=== PATIENT | male | born 1990 | race Caucasian/White ===

== ENCOUNTER 2025-02-06 10:31 | Day surgery (SDC) | payer MEDICARE, MEDICAID, SELFPAY ==
--- NOTE | 2025-02-01 13:27 | W.PM.DSUDISC ---
Discharge Plan Disposition Patient Disposition: Home Discharge Details Attending Provider: Leandro Ortiz Primary Care Provider: Maldonado Tuttle Home Meds and New Rx's Prescriptions: No Action clonazepam [Klonopin] 0.5 mg tablet 1.5 mg PO BID diazepam 20 mg kit 5 mg [place] Q12H PRN lamotrigine 25 mg tablet 25 mg PO BID Rx Instructions: one tab in morning and two tabs in evening (DME) blood-glucose meter Kit See Rx Instructions .Route Rx Instructions: As directed mometasone [Nasonex 24hr Allergy] 50 mcg/actuation spray,non-aerosol 2 spray intranasal DAILY Rx Instructions: administer into each nostril famotidine 40 mg/5 mL (8 mg/mL) suspension for reconstitution 20 mg PO BID lorazepam 1 mg tablet 1 mg PO DAILY PRN albuterol sulfate [Ventolin HFA] 90 mcg/actuation HFA aerosol inhaler 1 puff inhalation Q4H PRN ibuprofen 100 mg tablet,chewable 600 mg PO BID (DME) incontinence pad, liner, disp Pad See Rx Instructions .Route Rx Instructions: As directed diazepam 20 mg/2 spray (10mg/0.1mL x2) spray,non-aerosol 20 mg intranasal ONCE PRN Rx Instructions: administer 1 spray into each nostril; as a single dose promethazine 25 mg suppository 25 mg [place] Q6H PRN ondansetron HCl 8 mg tablet 8 mg PO Q8H PRN zonisamide [Zonegran] 100 mg capsule 100 mg PO .qod risperidone 1 mg/mL solution 1 mg PO BID Rx Instructions: take 0.8 ML by mouth BID (DME) underpads Pad See Rx Instructions .Route Rx Instructions: As directed sulfamethoxazole-trimethoprim 200-40 mg/5 mL suspension 10 ml PO BID Rx Instructions: takes fpc pregabalin 75 mg capsule 75 mg PO DAILY fluvoxamine 25 mg tablet 25 mg PO BID lamotrigine 50 mg tablet,disintegrating 50 mg PO HS valproic acid (as sodium salt) 250 mg/5 mL (5 mL) solution 125 mg PO BID Discharge Instructions Stand Alone Forms: Portal Information
[2025-02-06] VITALS (11 sets, daily range): BP systolic 131–148; BP diastolic 65–87; PULSE 72–85; RESP 13–20; TEMP 36.2–36.8; O2SAT 96–100; BMI 38.2
--- NOTE | 2025-02-06 09:04 | W.ANESPRE ---
General Info Date of Service Date Performed: 02/06/25 Height: 5 ft 3 in Weight: 97.976 kg Body Mass Index (BMI): 38.2 Surgical Procedure: Operation Date: 02/06/25 12:10 Proposed Procedure Side Surgeon p Sacroiliac Joint Injection Leandro Ortiz MD Meds Allergies and Home Medications Allergies Allergy/AdvReac Type Severity Reaction Status Date / Time citalopram Allergy Severe Unknown Verified 02/06/25 10:52 levetiracetam Allergy Intermediate Other (See Verified 02/06/25 10:52 Comment) amoxicillin Allergy Mild Topical Verified 02/06/25 10:52 Irritation fluticasone (From Flonase) AdvReac Intermediate Other (See Verified 02/06/25 10:52 Comment) methylphenidate AdvReac Intermediate Other (See Verified 02/06/25 10:52 Comment) tiagabine AdvReac Intermediate Other (See Verified 02/06/25 10:52 Comment) pyridoxine AdvReac Mild Other (See Verified 02/06/25 10:52 Comment) Home Medication ?Medication ?Instructions ?Recorded albuterol sulfate 90 mcg/actuation 1 puff inhalation Q4H PRN 12/16/24 aerosol inhaler (Ventolin HFA) blood-glucose meter 12/16/24 clonazepam 0.5 mg tablet (Klonopin) 1.5 mg PO BID 12/16/24 diazepam 20 mg rectal kit 5 mg [place] Q12H PRN 12/16/24 diazepam 20 mg/2 spray (10 mg/0.1 20 mg intranasal ONCE PRN 12/16/24 mL x 2) nasal spray famotidine 40 mg/5 mL (8 mg/mL) 20 mg PO BID 12/16/24 oral suspension ibuprofen 100 mg chewable tablet 600 mg PO TID 12/16/24 incontinence pad, liner, disp 12/16/24 lamotrigine 25 mg tablet 25 mg PO BID 12/16/24 lorazepam 1 mg tablet 1 mg PO DAILY PRN 12/16/24 mometasone 50 mcg/actuation nasal 2 spray intranasal DAILY 12/16/24 spray (Nasonex 24hr Allergy) ondansetron HCl 8 mg tablet 8 mg PO Q8H PRN 12/16/24 pregabalin 75 mg capsule 75 mg PO DAILY 12/16/24 promethazine 25 mg rectal 25 mg [place] Q6H PRN 12/16/24 suppository risperidone 1 mg/mL oral solution 1 mg PO BID 12/16/24 sulfamethoxazole 200 10 ml PO BID 12/16/24 mg-trimethoprim 40 mg/5 mL oral suspension underpads 12/16/24 zonisamide 100 mg capsule 100 mg PO .qod 12/16/24 (Zonegran) fluvoxamine 25 mg tablet 25 mg PO BID 12/20/24 lamotrigine 50 mg disintegrating 50 mg PO HS 12/20/24 tablet valproic acid (as sodium salt) 250 125 mg PO BID 12/20/24 mg/5 mL (5 mL) oral solution PFSH Active Problems Active Problems: Problem Status Onset Code SI (sacroiliac) joint dysfunction Acute M53.3 Lumbar spondylosis Acute M47.816 Lumbar spine scoliosis Acute M41.9 Medical History Medical History (Updated 02/03/25 @ 08:55 by Zoran Erazo) Spasticity Microcephaly Epileptic seizures Per dad out-going them only had 2 seizures in in the past 7 years. 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 Surgical History Surgical History History of ankle surgery [facility] 2024 Tobacco Smoking/Tobacco Use Status: Never Passive smoking exposure: No Alcohol Alcohol Intake: never Substance Use Substance use: Never Substance use type: does not use Anesthesia Assessment and Plan Anesthesia History Personal History: No History of Anesthesia Complications Family History: No Family History of Anesthesia Complications Exercise Tolerance Exercise Tolerance: Metabolic Equivalents>4 Cardiac & Pulmonary Exam Cardiac Exam: Normal S1/S2 Heart Sounds Pulmonary Exam: Clear Bilateral Breath Sounds Implantable Cardiac Device Does patient have a Pacemaker or an ICD?: No Airway Exam Known Difficult Airway: No Mallampati Class: 4 Mouth Opening: Narrow (< 3cm) Thyromental Distance: Less than 3 cm Neck Range of Motion: Full ROM Neck Circumference: Normal Teeth Condition: Normal Dentition and Unable to Assess ASA Classification ASA Score: ASA 3 Emergency Case?: No NPO Status NPO Status: NPO Clears >2 hours, Solids >8 hours Anesthesia Plan Resuscitation Status: Full Code Anesthesia Technique: General Anesthesia Airway Planned: Endotracheal Tube Monitors Used: Standard Monitors Preoperative Comments:: 34 yo for sacroiliac injection. Sig PMHx: Mowat-Travis, Chiari I, ADD, anxiety, epilepsy, scoliosis. Previous Anes: occ tolerates preox. - [facility]/MRI, igel 4, no issues. - [facility]/SI joint injection, midaz, prop, sevo, iGel 4, no issues. - mac 3 grade 1.
[2025-02-06] MEDS: Lactated Ringers 1,000 ML 50 ML IV (11:25)
--- NOTE | 2025-02-06 11:44 | W.PM.OP ---
Operative Note Operative Note PRE-OP DIAGNOSIS: sacroiliac joint dysfunction PROCEDURE: ?Sacroiliac Joint Steroid Injection ? Location: Bilateral SI Joints? Pre-procedure Diagnosis: Sacroiliac joint dysfunction not elsewhere classified - M53.3 ? Post-procedure Diagnosis:? The same as above ? Sedation:? GETA ? Medication: Depo-Medrol 40 mg, bupivacaine 0.5% 1 mL, Omnipaque 0.25 mL per joint ? Estimated blood loss:? less than 2 cc ? Surgeon:? Leandro Ortiz MD ? COMMENT: PT HAD GREATER THAN 50% RELIEF OF HER PAIN FOR GREATER THAN 6 MONTHS FROM PREVIOUS INJECTION ? Procedure Detail:? The procedure and potential risks were explained to the patient and informed written consent was obtained. The patient was escorted to the procedure room and placed in the prone position. Pillows were utilized for proper positioning and comfort. Time out was performed in the procedure room with nursing staff confirming the patient's identity, procedure to be performed, allergies, and any blood thinning or anti-platelet medications. The patient's lumbosacral area was prepped with ChloraPrep and draped in a sterile fashion. Sterile technique was maintained throughout the procedure.? Sterile gloves were used, a face mask was worn, and new single dose vials of all medications were used with the top being swabbed with alcohol and given time to dry prior to withdrawal of medication. Lidocaine 1% was used to anesthetize the skin. With fluoroscopic guidance, a 22-gauge 3.5 spinal needle was advanced into the posteroinferior aspect of the Bilateral SI joint. Confirmation of intra-articular position of the needle tip was obtained with injection of 0.25cc of Omnipaque 240 contrast which showed appropriate spread within the joint.? Following negative aspiration, 40mg of methylprednisolone mixed with 1 mL of bupivacaine 0.5% was injected.? The needle was gently removed. ?The patient tolerated the procedure well and was awakened from anesthesia in stable condition and discharged home with instructions.? Permanent images saved and recorded. Plan:? Follow up prn. SURGEON: Leandro Ortiz ANESTHESIA TYPE: General LMA/ETT Refer to Anesthesia Record ESTIMATED BLOOD LOSS: 0.1 PATHOLOGY: none sent COMPLICATIONS: None Patient was transported to: PACU Patient's condition: stable Procedure Description: ?Sacroiliac Joint Steroid Injection ? Location: Bilateral SI Joints? Pre-procedure Diagnosis: Sacroiliac joint dysfunction not elsewhere classified - M53.3 ? Post-procedure Diagnosis:? The same as above ? Sedation:? GETA ? Medication: Depo-Medrol 40 mg, bupivacaine 0.5% 1 mL, Omnipaque 0.25 mL per joint ? Estimated blood loss:? less than 2 cc ? Surgeon:? Leandro Ortiz MD ? COMMENT: PT HAD GREATER THAN 50% RELIEF OF HER PAIN FOR GREATER THAN 6 MONTHS FROM PREVIOUS INJECTION ? Procedure Detail:? The procedure and potential risks were explained to the patient and informed written consent was obtained. The patient was escorted to the procedure room and placed in the prone position. Pillows were utilized for proper positioning and comfort. Time out was performed in the procedure room with nursing staff confirming the patient's identity, procedure to be performed, allergies, and any blood thinning or anti-platelet medications. The patient's lumbosacral area was prepped with ChloraPrep and draped in a sterile fashion. Sterile technique was maintained throughout the procedure.? Sterile gloves were used, a face mask was worn, and new single dose vials of all medications were used with the top being swabbed with alcohol and given time to dry prior to withdrawal of medication. Lidocaine 1% was used to anesthetize the skin. With fluoroscopic guidance, a 22-gauge 3.5 spinal needle was advanced into the posteroinferior aspect of the Bilateral SI joint. Confirmation of intra-articular position of the needle tip was obtained with injection of 0.25cc of Omnipaque 240 contrast which showed appropriate spread within the joint.? Following negative aspiration, 40mg of methylprednisolone mixed with 1 mL of bupivacaine 0.5% was injected.? The needle was gently removed. ?The patient tolerated the procedure well and was awakened from anesthesia in stable condition and discharged home with instructions.? Permanent images saved and recorded. Plan:? Follow up prn. Date of Procedure: 02/06/25
--- NOTE | 2025-02-06 11:47 | PDOC.DSDIS_ITS ---
Date of service: 02/06/25 Discharge Plan Disposition Patient Disposition: Home Condition: Good Discharge Details Attending Provider: Leandro Ortiz Primary Care Provider: Maldonado Tuttle Home Meds and New Rx's Prescriptions: No Action clonazepam [Klonopin] 0.5 mg tablet 1.5 mg PO BID Patient Comments: 0.75 in AM 0.5 in PM diazepam 20 mg kit 5 mg [place] Q12H PRN lamotrigine 25 mg tablet 25 mg PO BID Rx Instructions: one tab in morning and two tabs in evening (DME) blood-glucose meter Kit See Rx Instructions .Route Rx Instructions: As directed mometasone [Nasonex 24hr Allergy] 50 mcg/actuation spray,non-aerosol 2 spray intranasal DAILY Rx Instructions: administer into each nostril famotidine 40 mg/5 mL (8 mg/mL) suspension for reconstitution 20 mg PO BID lorazepam 1 mg tablet 1 mg PO DAILY PRN albuterol sulfate [Ventolin HFA] 90 mcg/actuation HFA aerosol inhaler 1 puff inhalation Q4H PRN ibuprofen 100 mg tablet,chewable 600 mg PO TID (DME) incontinence pad, liner, disp Pad See Rx Instructions .Route Rx Instructions: As directed diazepam 20 mg/2 spray (10mg/0.1mL x2) spray,non-aerosol 20 mg intranasal ONCE PRN Rx Instructions: administer 1 spray into each nostril; as a single dose promethazine 25 mg suppository 25 mg [place] Q6H PRN ondansetron HCl 8 mg tablet 8 mg PO Q8H PRN zonisamide [Zonegran] 100 mg capsule 100 mg PO .qod Patient Comments: did not start risperidone 1 mg/mL solution 1 mg PO BID Patient Comments: 0.85 in AM 0.95 in PM Rx Instructions: take 0.8 ML by mouth BID (DME) underpads Pad See Rx Instructions .Route Rx Instructions: As directed sulfamethoxazole-trimethoprim 200-40 mg/5 mL suspension 10 ml PO BID Patient Comments: For mobility and speech. Per dad [facility] every time he has been on abx his mobility and speech would improve drastically Rx Instructions: takes supervisor intermediates pregabalin 75 mg capsule 75 mg PO DAILY fluvoxamine 25 mg tablet 25 mg PO BID lamotrigine 50 mg tablet,disintegrating 50 mg PO HS valproic acid (as sodium salt) 250 mg/5 mL (5 mL) solution 125 mg PO BID Discharge Instructions Instructions: Corticosteroid Joint Injection Additional Instructions: Patient given instruction sheet to take home. He will follow-up as needed. Patient may remove bandages when he gets home. He can shower but not bathe for 48 hours Stand Alone Forms: Portal Information Diet:: As Tolerated Discharge Orders Discharge Orders: Discharge Order (Routine); Ordered 02/06/25 Ordered By: Leandro Ortiz DS: Diagnosis Discharge Diagnosis (1) SI (sacroiliac) joint dysfunction: Start date: 02/06/25 Start time: 12:45 Status: Acute Asessment and Plan: Patient status post bilateral sacroiliac joint injections with general anesthesia without complication.
[2025-02-06] MEDS: methylPREDNISolone ACETATE 40 MG/ML VIAL (12:25)
[2025-02-06] MEDS: Omnipaque 300 MG/ML 50 ML BTL (12:29)
[2025-02-06] MEDS: Bupivacaine 0.5% Pres-Free 30 ML VIAL (12:29)
--- NOTE | 2025-02-06 12:45 | DI.RAD_ITS ---
Exam(s) XR PAIN CLINIC SACRIOILIAC 2V EXAM: XR PAIN CLINIC SACRIOILIAC 2V CLINICAL HISTORY: dx:SACRAL ILIAC JOINT DISFUNTION TECHNIQUE: 2D and realtime digital imaging was performed. CONTRAST MATERIAL: Refer to procedure report. COMPARISON: No exams were available for comparison FINDINGS: Fluoroscopy was provided for Dr. Ortiz during the performance of a sacroiliac joint injections. Please refer to the procedure report for complete details. Ka,r=9.81 mGy IMPRESSION: RADIATION DOSE DELIVERED: 0.0 0.0 0
--- NOTE | 2025-02-06 13:01 | W.ANESPOSTOP ---
Postoperative Evaluation Date, Time and Location Date Performed: 02/06/25 Time Performed: 13:01 Patient Location: PACU Vital Signs Most Recent Imported Vital Signs: Most Recent Vital Signs Temp Pulse Resp BP Pulse Ox 36.5 C 79 14 131/84 96 02/06/25 12:56 02/06/25 12:56 02/06/25 12:56 02/06/25 12:56 02/06/25 12:56 Pain Score Most Recent Pain Score: Most Recent Pain Score Pain Level 0 02/06/25 12:58 Assessment Mental Status: Awake (Alert & Oriented to Patient Baseline) Airway and Respiratory Function: Patent airway with normal (patient baseline) respiratory exam Cardiovascular Function: Hemodynamically Stable Hydration Status: Adequately Hydrated Nausea & Vomiting: No Nausea or Vomiting Pain: Pt. Denies Any Pain Peripheral Nerve Block: Patient did not receive a nerve block
== END 2025-02-06 14:14 | disposition home or self-care (01) ==
LOC: SUR 10:34
PROVIDERS: Visit Provider Anesthesiology Pain Medicine
PROC: (CPT 27096; principal; 2025-02-06 12:00)
DX: M54.50 Low back pain, unspecified (principal); M53.3 Sacrococcygeal disorders, not elsewhere classified; G89.29 Other chronic pain; G31.84 Mild cognitive impairment of uncertain or unknown etiology; Q87.0 Congenital malformation syndromes predominantly affecting facial appearance; R25.2 Cramp and spasm
CPT/HCPCS: 27096; 72200; J0665; J1010; J1100; J2250; J2704; Q9967